=== PATIENT | female | born 1955 | race Caucasian/White ===

== ENCOUNTER → 2016-07-16 | Outpatient (CLI) | payer MEDICARE ==
[~2016-07-16] MED LIST: ACETAMINOPHEN325 MG PO; ACID CONTROL150 M1 PO; ARIMIDEX1 MG PO; B COMPLEX1 CA1 PO; BENADRYL PO; CALCIUM 600 + D1 TAB PO; CYANOCOBAL1000 MCG/1 IJ; FLUCONAZOLE200 M1 PO; HYDROCODON-ACE1 EAC5 PO; KEFLEX250 M1 PO; LORTAB 7.51 TAB PO; MULTI-VITAMIN1 EAC1 PO; NORCO 5/325 TAB1 TAB PO; PHENERGAN25 M1 PO; PREMPRO PO; VICODIN 5/500 T1 TAB PO; VIT B-12 PO; VITAMIN E1000 UNI1 PO
== END | disposition home or self-care (01) ==
LOC: CLAB 11:25
DX: D64.81 Anemia due to antineoplastic chemotherapy (principal)
CPT/HCPCS: 36415; 86850; 86900; 86901; 86923

== ENCOUNTER → 2016-07-17 | Outpatient (CLI) | payer MEDICARE | END | disposition home or self-care (01) | LOC: CSSDAY 07:44 | DX: D64.81 Anemia due to antineoplastic chemotherapy (principal); C34.01 Malignant neoplasm of right main bronchus | CPT/HCPCS: 36430; J1200; J1940; P9016 ==

== ENCOUNTER → 2016-09-16 | Outpatient (CLI) | payer MEDICARE ==
--- NOTE | ~2016-09-16 | MR17 ---
[facility] A Service of [facility] RADIOLOGY TEXT RESULTS PATIENT: JONATHAN HOANG LOCATION: [facility] : 55 UNIT #: [id number] AGE: [address]: Elmo Lacey MD SEX: F ORDER DR: [id number] [facility] [address] [facility]. [place], [place] [address] [id number] O MR#: [id number] Acc #: [id number] NAME: JONATHAN HOANG : 1955 SEX: F STUDY DATE/TIME: 09/16/2016 17:01 UNIT: [facility] ROOM: STUDY DESCRIPTION: MR Brain WWo Contrast Attending Physician: Elmo Lacey M.D. Referring Physician: Elmo Lacey M.D. Ordering Physician: Elmo Lacey M.D. Primary Care Physician: Bhakti Carter M.D. MRI CENTER REPORT This report is preliminary unless electronic signature is present. EXAM Brain MR with and without contrast, 09/16/2016 COMPARISON Prior brain MR, 04/17/2016 PROCEDURE Routine brain MR with and without contrast. HISTORY History of breast and lung cancer. Observation of suspected metastatic malignancy. Breast cancer diagnosed in 2012 and lung cancer in April 2016. FINDINGS There is no MR evidence of acute ischemia or other restricted diffusion. Bone marrow signal is normal. There is no hydrocephalus or extraaxial fluid collection. Normal flow voids are seen in the cerebral vessels. There are nonspecific white matter changes, not significantly changed since the prior exam. Brain parenchymal signal is otherwise normal. Postcontrast images show no evidence of intracranial mass or abnormal enhancement. IMPRESSION Minimal nonspecific white matter change, otherwise normal brain MR with and without contrast. No evidence of metastatic disease, no interval change since 04/17/2016. Dictated by... Rohan Champion M.D. [facility] A Service of [facility] RADIOLOGY TEXT RESULTS PATIENT: JONATHAN HOANG LOCATION: [facility] : 55 UNIT #: [id number] AGE: [address]: Elmo Lacey MD SEX: F ORDER DR: THIS IS AN ELECTRONICALLY VERIFIED REPORT Rohan Champion M.D. at 09/19/2016 5:29 PM ROGE/mohsen TD: 09/17/2016 12:41 JOB #: [id number] MRI CENTER REPORT Page 1 of 1 COPY
[2016-09-16 17:26] LABS: POC - CREATININE 0.89 mg/dL (0.44-1.03); POC - GFR >60.0 mL/min (>60)
== END | disposition home or self-care (01) ==
LOC: CMRI 15:21
PROVIDERS: Radiology Radiation Oncology
DX: C34.90 Malignant neoplasm of unspecified part of unspecified bronchus or lung (principal); R90.82 White matter disease, unspecified
CPT/HCPCS: 70553; 82565; A9577